=== PATIENT | female | born 1995 | race Caucasian/White ===

== ENCOUNTER 2023-12-23 13:44 | Emergency (ER) | payer MEDICAID | END 2023-12-23 14:45 | disposition home or self-care (01) | LOC: CSHERS 13:44 | DX: Z76.0 Encounter for issue of repeat prescription (principal); E11.9 Type 2 diabetes mellitus without complications; I10 Essential (primary) hypertension; Z55.6 Problems related to health literacy; Z79.84 Long term (current) use of oral hypoglycemic drugs | CPT/HCPCS: 36416; 99282 ==